=== PATIENT | female | born 1980 | race African-American/Black ===

== ENCOUNTER 2020-10-13 11:19 | Emergency (ER) | payer MEDICAID ==
[~2020-10-13] VITALS: Ht 177.8 cm; Wt 80.0 kg
[~2020-10-13 11:19] MED LIST: DIVA500T3 MT; FERR325T6 MT; PANT40TA51 MT; RISP1TAB97 MT
[2020-10-13] MEDS ORDERED: ACETAMINOPHEN 500MG TABLET PO ONE (12:15)
[2020-10-13 14:15] VITALS: BP 128/69
== END 2020-10-13 14:17 | disposition home or self-care (01) ==
LOC: ER 11:19
DX: S02.85XA Fracture of orbit, unspecified, initial encounter for closed fracture (principal); F12.10 Cannabis abuse, uncomplicated; Z79.899 Other long term (current) drug therapy; Y04.0XXA Assault by unarmed brawl or fight, initial encounter; Y93.89 Activity, other specified; Y92.89 Other specified places as the place of occurrence of the external cause; Y99.8 Other external cause status
CPT/HCPCS: 70486; 81025; 99285

== ENCOUNTER 2022-01-06 02:20 | Emergency (ER) | payer MEDICAID ==
[~2022-01-06] VITALS: Ht 172.7 cm; Wt 82.1 kg
[2022-01-06 02:25] VITALS: BP 136/92
[2022-01-06] MEDS ORDERED: MORPHINE SULFATE 4 MG/ML CPJ (NOT FOR IM USE) IV STA (03:46)
[2022-01-06] MEDS ORDERED: ONDANSETRON HCL 4MG/2ML INJ IV STA (03:46)
[2022-01-06 04:08] LABS: HEMATOCRIT. 27.4 % (36.0-48.0); HEMOGLOBIN. 8.9 g/dL (12.0-16.0); MEAN CORPUSCULAR HEMOGLOBIN 25.6 pg (28.0-32.0); MEAN CORPUSCULAR VOLUME 79.1 fL (81.0-99.0); MEAN PLATELET VOLUME 6.6 fl (7.4-10.4); PLATELET 362 x1000/uL (130-400); RED BLOOD CELL COUNT 3.47 mill/uL (4.2-5.4); RED CELL DISTRIBUTION WIDTH 23.2 % (11.6-14.6)
[2022-01-06 04:21] LABS: CHLORIDE 107 mEq/L (98-107)
[2022-01-06 04:25] LABS: CLARITY URINE CLOUDY (CLEAR); COLOR URINE ORANGE (YELLOW); KETONES URINE TRACE (NEGATIVE); LEUKOCYTE ESTERASE URINE 1+ (NEGATIVE); NITRITE URINE NEGATIVE (NEGATIVE); OCCULT BLOOD URINE 3+ (NEGATIVE); PROTEIN URINE 2+ (NEGATIVE); SPECIFIC GRAVITY URINE 1.016 (1.005-1.030); UROBILINOGEN URINE 0.2 E.U./dL (0.2-1.0)
[2022-01-06 04:30] LABS: B-HCG QUANTITATIVE < 1 mIU/mL (<3)
[2022-01-06 04:53] LABS: PLATELET ESTIMATE NORMAL
[2022-01-06] MEDS ORDERED: TOPUD MT (05:40)
[2022-01-06] MEDS ORDERED: IBUP-2029 MT (05:40)
[2022-01-06] MEDS ORDERED: NITR-87 MT (05:40)
== END 2022-01-06 05:50 | disposition home or self-care (01) ==
LOC: ER 02:20
DX: D25.9 Leiomyoma of uterus, unspecified (principal); N30.00 Acute cystitis without hematuria
CPT/HCPCS: 36415; 74176; 76856; 80053; 81003; 81025; 83690; 84702; 85025; 86850; 86900; 86901; 96374; 96375; 99284; J2270; J2405